=== PATIENT | male | born 2000 | race Caucasian/White ===

== ENCOUNTER 2018-06-06 16:25 | Emergency (ER) | payer SELFPAY | END 2018-06-06 16:45 | disposition home or self-care (01) | LOC: SCSER 16:25 | DX: R11.2 Nausea with vomiting, unspecified (principal); F31.9 Bipolar disorder, unspecified; F20.9 Schizophrenia, unspecified; F90.9 Attention-deficit hyperactivity disorder, unspecified type; F17.210 Nicotine dependence, cigarettes, uncomplicated; K58.9 Irritable bowel syndrome, unspecified | CPT/HCPCS: 99281 ==